=== PATIENT | female | born 2005 | race African-American/Black ===

== ENCOUNTER 2025-02-02 16:38 | Emergency (ER) | payer OTHER, SELFPAY ==
--- OUTSIDE RECORDS SUMMARY | 2023-12-20 12:03 | XMS_ITS | Continuity of Care Document ---
[facility] Organization [facility] Address [address] [place] [id number] Phone Care Team Providers Care Ironworker Machine Operator Name Role Phone Natasha Diaz APRN Unavailable Unavailabl e Allergies, Adverse Reactions, Alerts Substance Reaction Status Criticality No Known Allergies Active No Inform ation Medications Medication Instructions Dosage Effective Dates (start - stop) Status Comments acetaminophen 500 mg tablet take 2 tablet by oral route every 6 hours as needed 1000 MG - Active multivitamin tablet - Active ibuprofen 200 mg tablet take 3 tablet by oral route every 6 hours as needed with food 600 MG - Active Procedures Procedure Date ROUTINE VENIPUNCTURE OFFICE/OUTPATIENT VISIT, BANNER Advance Directives Directive Yes / No Effective Date File Name No Information Encounters Encounter Description Practice Location Reason(s) For Visit Diagnoses Date Provider Providers Copied on Encounter [facility], [address] [place] [address], [id number], [place] tel:[phone] [facility] No Information 4 Joe Kaur . [address], [place], [id number] , [place]. tel:[phone] OFFICE/OUTPAT IENT VISIT, [facility], [address] [place] [address], [id number], [place] tel:[phone] [facility] Establish Care (chief complaint) Body mass index [BMI] 22.0-22.9, adultOther senior care (current) drug therapyAdult general medical examScreening for HIV (human immunodeficiency virus)Need for hepatitis C screening testModerately severe depression Nov-2 Joe Kaur . [address], [place], [id number] , [place]. tel:[phone] Family History Family Member Type Diagnosis Age At Onset No Information Immunizations Vaccine Date Status Comments COVID-19 mRNA (PFR) administered Source: Other Registry COVID-19 mRNA (PFR) administered Source: Other Registry Influenza, Seasonal administered Source: Other Registry Hep A, ped/adol, 2D administered Source: Other Registry [id number] PEDIARIX administered Sourc e: Other Registry Hib (PRP-OMP)Pedvax administered Source: Other Registry [id number] PEDIARIX administered Sourc e: Other Registry Hib (PRP-OMP)Pedvax administered Source: Other Registry Hep B, ped/adol administered Source: Othe r Registry Payers Payer name Insurance type Covered libertarian ID Authoriza tion(s) No Information Social History Type Description Quantity Date Captured Comments Alcohol Use Details Unknown Caffeine Use Details Unknown Tobacco Use Status No Information Smoking Status No Information Sex Female Sexual Orientation Bisexual Gender Identity Female Chief Complaint And Reason For Visit No Information Reason For Referral Reason For Referral No Information Plan Of Treatment Date Type Action Status Goal Hepatitis C screening due Goal BMI Adult Follow-Up. Due on due Goal HIV Screen. Due on due Goal MOSBIRT Screening. Due on due Goal Tobacco screening. Due on due Goal Tobacco Cessation. Due on due Goal BMI. Due on due Goal Tdap. Due on due Goal Depression Follow-Up. Due on due Goal Depression screening. Due on due Goal BMI Adult Follow-Up. Due on due Goal Depression screening. Due on due Goal BMI. Due on due Goal Depression Follow-Up. Due on due Goal Tdap. Due on due Goal Tobacco screening. Due on due Goal MOSBIRT Screening. Due on due History Of Present Illness Encounter Date Complaint History Of Prese nt Illness Establish Care Nila Calderon is an 18 year old female that presents to establish care within the [facility] and begin seeing one of our PCP's. Previous PCP: had a child welfare manager, but unsure of their nameC/O:1) No active or current complaints. PMH: concussion and pneumoniaPSH: noneFH: Mother: none Father: noneLast labs: nothing in the past yearTobacco: deniesAlcohol: deniesDrugs: deniesBMI: 22.11Nutrition: Sincere effort to eat balanced mealsExercise: Not as much as they shouldPHQ: No SI/HIPreventive:Pap: never Colonoscopy: neverMammography: neverHIV blood test: neverHep C blood: neverImmunizations: unsure if UTD Functional Status Date Functional Assessmen t No Information Instructions Date Instruction Additional Infor belgica -Remember, do the OA paperwork and come in for a walk in assessment anytime M-F between 8am and 3pm.-Remember, we have the CAP available if needed. -We have a crisis hotline that is available 14/10-If you begin to feel suicidal, reach out to someone or call 911 or you can call 988 which goes directly to the suicide hotline. Related to Moderately severe depression Screening based on c urrent recommended guidelines Related to Screening for HIV (human immunodeficiency virus) Screening based on c urrent recommended guidelines Related to Need for hepatitis C screening test Labs to be drawnCont inue taking your daily medications Related to Other senior care (current) drug therapy -Make sure you are e ating a well balanced diet.-It is recommended that you try to get some form of exercise daily Related to Body mass index [BMI] 22.0-22.9, adult Labs to be drawnCont inue taking your daily medications Related to Adult general medical exam Depression Follow-Up Giving encouragement to exercise Related to Body mass index [BMI] 22.0-22.9, adult Dietary needs education Related to Body mass index [BMI] 22.0-22.9, adult Assessments Type Assessment Date No Information Patient Care Teams Name Effective Dates (start - stop) Status Members No Information
--- OUTSIDE RECORDS SUMMARY | 2024-03-10 03:30 | XMS_ITS ---
Author Organization [facility] Address [address] [place], [place] [id number] Care Team Providers Care Cilnical Scientist Name Role Phone Nino Araya Primary Care Provider [phone] Mag Bardales [phone] REASON FOR VISIT wwe exam new pt. Social History Sex Assigned At : Social History Observation Description Sex Assigned At Female Encounters Encounter Location Date Provider Diagnosis [facility] [address] [place], [place] [id number] 03/10/2024 Mag Bardales Plan Of Treatment No Information Progress Notes * FERREIRATremayneRidgeB:2005 (19 yo F)Acc No.[id number]:03/10/2024 Patient: Nila JOYNER Appointment Provider: RYAN Schofield :2005 A ge:18 Y S ex:Female Date:03/10/2024 Address:[address] [place], [id number] Pcp:Nino Araya Subjective: * Chief Complaints: * 1 . Wwe exam new pt.. * Medical History: Objective: * Vitals: Assessment: Plan: * Treatment: * Billing Information: * Visit Code: * Procedure Codes: * Electronic signature of RYAN Choudhary on 02/02/2025 at 07:42 PM CYBER SECURITY ARCHITECT Sign off status: Pending * Appointment Provider: RYAN Schofield Date: 1 05/11/2023 Generated for Frankie goodwin/Jimmie/Demian on: 1 04/04/2024 07:42 PM CYBER SECURITY ARCHITECT
--- NOTE | ~2025-02-02 | US_ITS ---
EXAMINATION: US OB <=14 wk fetus w TV, 02/02/2025 22:30 SOFT MUD MOLDER HISTORY: possible recent miscarriage, lower abd pain, +beta Comparison: None Technique: Melendez-scale sonographic images were obtained Findings: Uterus anteverted 7.5 x 3.2 x 4.9 cm. There is no intrauterine gestational sac identified. The endometrium is thickened with a heterogeneous appearance but no areas of increased flow, the endometrium measures 8 mm. Right ovary 4.6 x 2.4 x 4.1 cm, no adnexal mass, normal flow, probable corpus luteum 1.9 x 1.9 cm. Left ovary 4 x 1.3 x 2.2 cm, no adnexal mass, normal flow. Minimal free fluid. IMPRESSION: 1. No intrauterine identified. There is no adnexal mass to suggest ectopic , serial beta-hCG and follow-up recommended to assess Reviewed, dictated and finalized at location P. MUD MOLDER IMPRESSION: 1. No intrauterine identified. There is no adnexal mass to suggest ec topic , serial beta-hCG and follow-up recommended to assess
[2025-02-02 16:39] VITALS: BP 135/84; PULSE 98; RESP 16; TEMP 37.1; O2SAT 98
--- NOTE | 2025-02-02 17:47 | ED.ABDPAIN ---
HPI - Abdominal Pain General Chief Complaint: Abdominal Pain <STEFAN Walker Last Filed: 02/03/25 09:25> Stated Complaint: abd pain <STEFAN Walker Last Filed: 02/03/25 09:25> Time Seen by Provider: 02/02/25 17:47 <STEFAN Walker Last Filed: 02/03/25 09:25> Focused HPI: This is a 19 year old female that presents to the ER for abdominal pain. Reports mid lower abdominal pain. Reports ongoing intermittently for the last couple of months. Reports nausea, vomiting, diarrhea. Denies dysuria. GENERAL: Well-appearing, well-nourished, and in no acute distress. HEAD: Normocephalic, atraumatic. CHEST: Clear to auscultation. ?No respiratory distress. HEART: Regular rate and rhythm.? NEURO: ?Alert and oriented x3. Patient screened in triage and initial orders placed.? ?Additional care and disposition to be based upon?diagnostic testing and treatment. <STEFAN Walker Last Filed: 02/03/25 09:25> Focused HPI: This is a 19 year old female that presents to the ER for abdominal pain. Reports mid lower abdominal pain. Reports ongoing intermittently for the last couple of months. Reports nausea, vomiting, diarrhea. Denies dysuria. GENERAL: Well-appearing, well-nourished, and in no acute distress. HEAD: Normocephalic, atraumatic. CHEST: Clear to auscultation. ?No respiratory distress. HEART: Regular rate and rhythm.? NEURO: ?Alert and oriented x3. Patient screened in triage and initial orders placed.? ?Additional care and disposition to be based upon?diagnostic testing and treatment. <STEFAN Dave Last Filed: 02/03/25 01:30> Source: patient <STEFAN Dave Last Filed: 02/03/25 01:30> Mode of arrival: ambulatory <STEFAN Dave Last Filed: 02/03/25 01:30> Limitations: no limitations <STEFAN Dave Last Filed: 02/03/25 01:30> History of Present Illness HPI narrative: Agree with above HPI. Reports pain became worse today which prompted her presentation. She does report intermittent vaginal spotting over the past few weeks. Believe she was recently and had a miscarriage at the end of November. Believes she had a normal menstrual cycle 01/07. Does not currently see OBGYN. Reports urinary frequency, denies dysuria or hematuria. <STEFAN Dave Last Filed: 02/03/25 01:30> Related Data Allergies/Adverse Reactions: Allergies Allergy/AdvReac Type Severity Reaction Status Date / Time No Known Allergies Allergy Verified 02/02/25 22:08 <STEFAN Walker Last Filed: 02/03/25 09:25> Review of Systems Review of Systems: All systems reviewed & are unremarkable except as noted in HPI. <STEFAN Dave Last Filed: 02/03/25 01:30> All systems reviewed & are unremarkable except as noted in HPI and below <STEFAN Dave Last Filed: 02/03/25 01:30> Exam Narrative: GENERAL: Well appearing, well-nourished, non-toxic, in no acute distress. HEAD: Normocephalic, atraumatic. RESPIRATORY: Airway patent, respirations nonlabored. Clear to auscultation bilaterally, no rales, rhonchi, wheezing. CARDIOVASCULAR: Regular rate and rhythm without murmurs, rubs, or gallops. ABDOMINAL: Soft, diffuse tenderness throughout lower abdomen, worse over suprapubic region, nondistended. Normoactive BS. MUSCULOSKELETAL: Moves all extremities. No gross deformities. SKIN: Warm, dry, normal color. NEURO: A&O X3. Speech clear. Cranial nerves II-XII grossly intact. Steady gait. No ataxic movements. PSYCHIATRIC: Appropriate mood and affect. Normal interaction. <STEFAN Dave Last Filed: 02/03/25 01:30> Course Vital Signs Vital signs: Vital Signs Temperature 98.7 F 02/02/25 16:39 Pulse Rate 98 02/02/25 16:39 Respiratory Rate 16 02/02/25 16:39 Blood Pressure 135/84 02/02/25 16:39 Pulse Oximetry 98 02/02/25 16:39 Temperature 98.7 F 02/02/25 16:39 Pulse Rate 82 02/03/25 01:30 Respiratory Rate 18 02/03/25 01:30 Blood Pressure 120/62 02/03/25 01:30 Pulse Oximetry 99 02/03/25 01:30 <Beth Mckeon PA-C - Last Filed: 02/03/25 09:25> Vital Signs Temperature 98.7 F 02/02/25 16:39 Pulse Rate 98 02/02/25 16:39 Respiratory Rate 16 02/02/25 16:39 Blood Pressure 135/84 02/02/25 16:39 Pulse Oximetry 98 02/02/25 16:39 Temperature 98.7 F 02/02/25 16:39 Pulse Rate 82 02/03/25 01:30 Respiratory Rate 18 02/03/25 01:30 Blood Pressure 120/62 02/03/25 01:30 Pulse Oximetry 99 02/03/25 01:30 <STEFAN Dave Last Filed: 02/03/25 01:30> MDM - Abdominal Pain MDM Narrative Medical decision making narrative: Patient presented to ED with lower abdominal pain, possible recent miscarriage. Vital signs stable upon arrival. Patient in no acute distress. Cbc without leukocytosis or anemia. CMP unremarkable. UA with some microscopic blood, no significant signs of infection. Bedside urine was negative, however beta hCG was obtained and slightly elevated to 23.5. Unclear if this is new or down trending from possible recent miscarriage. Patient was not evaluated for recent /miscarriage. Pelvic ultrasound obtained and showing thickened endometrium, wide differential, could be retained products of conception versus spontaneous miscarriage versus of unknown location. Discussed case with MALLIKA Arboleda environmental conservation professor, advised to have patient call office to make follow-up appointment, will need to determine if new or old/recent . Will place lab order sheet for repeat beta hcg on Friday. Patient is in agreement this plan and plan for follow-up. Advised to continue monitoring bleeding. Given strict return precautions. Patient in agreement with plan. Feels comfortable going home. Discharged in stable condition. <STEFAN Dave Last Filed: 02/03/25 01:30> Medical Records Attestation: I reviewed the patient's medical records. <Kell Gonzalez PA-C - Last Filed: 02/03/25 01:30> Lab Data Attestation: I reviewed the patient's lab results. <Kell Gonzalez PA-C - Last Filed: 02/03/25 01:30> Result diagrams: 02/02/25 18:36 02/02/25 18:36 <Beth Mckeon PA-C - Last Filed: 02/03/25 09:25> Labs: Lab Results 02/02/25 02/02/25 Range/Units 18:26 18:36 WBC 6.3 (4.5-10.0) K/mm3 RBC 4.62 (4.2-5.4) M/mm3 Hgb 12.9 (12.0-15.0) g/dL Hct 40.1 (37.0-47.0) % MCV 86.8 (80-100) fl MCH 27.9 (26-34) pg MCHC 32.2 (32-36) g/dl RDW 13.2 (11.5-14.5) % Plt Count 287 (150-375) k/mm3 MPV 10.1 (7.4-10.4) fl Immature Gran % (Auto) 0.2 (0-0.5) % Neut % (Auto) 52.4 (45.5-73.1) % Lymph % (Auto) 35.7 (18.3-44.2) % Stephenson % (Auto) 8.6 H (2.6-8.5) % Eos % (Auto) 2.5 (0-4.4) % Baso % (Auto) 0.6 (0.2-1.2) % Lymph # (Auto) 2.25 (0.9-3.2) K/mm3 Stephenson # (Auto) 0.5 (0.1-0.6) K/mm3 Eos # (Auto) 0.2 (0-0.3) K/mm3 Baso # (Auto) 0.0 (0.0-0.1) K/mm3 Abs Immat Gran (auto) 0.01 (0.00-0.031) K/mm3 Absolute Neuts (auto) 3.3 (1.3-6.7) K/mm3 Absolute Nucleated RBC 0.000 (0.0-0.012) K/mm3 Nucleated RBC % 0.0 (0.0-0.2) % Sodium 138 (134-143) mmol/L Potassium 4.2 (3.4-5.0) mmol/L Chloride 105 (98-107) mmol/L Carbon Dioxide 23 (22-30) mmol/L Anion Gap 10 (4-12) mmol/L BUN 14 (8-21) mg/dL Creatinine 0.67 L (0.7-1.0) mg/dL Estim Creat Clear Calc 104 ml/min Estimated GFR > 60 (59 - ) Glucose 84 (65-110) mg/dL Calcium 9.8 (8.9-10.7) mg/dL Total Bilirubin 0.3 (0.2-1.3) mg/dL AST 27 (14-36) U/L ALT 16 (6-35) U/L Alkaline Phosphatase 63 (45-116) U/L Total Protein 8.7 H (6.3-8.6) g/dL Albumin 4.8 (3.7-5.6) g/dL Lipase 42 (23-300) U/L Beta HCG, Quant 23.52 mIU/ML Urine Color Yellow (Yellow) Urine Appearance Cloudy H (Clear) Urine pH 8.0 (5.0-9.0) Ur Specific [place] 1.028 (1.001-1.035) Urine Protein Trace (Negative) mg/dL Urine Glucose (UA) Negative (Negative) mg/dL Urine Ketones Negative (Negative) mg/dL Ur Blood (Man) Negative (Negative) Urine Nitrate Negative (Negative) Urine Bilirubin Negative (Negative) Urine Urobilinogen 1.0 (<2.0) mg/dL Add Ur Microanalysis Reviewed Leukocyte Esterase Rfl Trace H (Negative) JUSTEN/UL Urine RBC 21-50 H (0-2) /hpf Urine WBC 0-5 (0-3) /hpf Ur Squamous Epith Cells Moderate (Few) /hpf Urine Bacteria 1+ H /hpf Urine Casts 0-2 POC Urine HCG, Qual Negative (Negative) <Beth cMkeon PA-C - Last Filed: 02/03/25 09:25> Lab Results 02/02/25 02/02/25 Range/Units 18:26 18:36 WBC 6.3 (4.5-10.0) K/mm3 RBC 4.62 (4.2-5.4) M/mm3 Hgb 12.9 (12.0-15.0) g/dL Hct 40.1 (37.0-47.0) % MCV 86.8 (80-100) fl MCH 27.9 (26-34) pg MCHC 32.2 (32-36) g/dl RDW 13.2 (11.5-14.5) % Plt Count 287 (150-375) k/mm3 MPV 10.1 (7.4-10.4) fl Immature Gran % (Auto) 0.2 (0-0.5) % Neut % (Auto) 52.4 (45.5-73.1) % Lymph % (Auto) 35.7 (18.3-44.2) % Stephenson % (Auto) 8.6 H (2.6-8.5) % Eos % (Auto) 2.5 (0-4.4) % Baso % (Auto) 0.6 (0.2-1.2) % Lymph # (Auto) 2.25 (0.9-3.2) K/mm3 Stephenson # (Auto) 0.5 (0.1-0.6) K/mm3 Eos # (Auto) 0.2 (0-0.3) K/mm3 Baso # (Auto) 0.0 (0.0-0.1) K/mm3 Abs Immat Gran (auto) 0.01 (0.00-0.031) K/mm3 Absolute Neuts (auto) 3.3 (1.3-6.7) K/mm3 Absolute Nucleated RBC 0.000 (0.0-0.012) K/mm3 Nucleated RBC % 0.0 (0.0-0.2) % Sodium 138 (134-143) mmol/L Potassium 4.2 (3.4-5.0) mmol/L Chloride 105 (98-107) mmol/L Carbon Dioxide 23 (22-30) mmol/L Anion Gap 10 (4-12) mmol/L BUN 14 (8-21) mg/dL Creatinine 0.67 L (0.7-1.0) mg/dL Estim Creat Clear Calc 104 ml/min Estimated GFR > 60 (59 - ) Glucose 84 (65-110) mg/dL Calcium 9.8 (8.9-10.7) mg/dL Total Bilirubin 0.3 (0.2-1.3) mg/dL AST 27 (14-36) U/L ALT 16 (6-35) U/L Alkaline Phosphatase 63 (45-116) U/L Total Protein 8.7 H (6.3-8.6) g/dL Albumin 4.8 (3.7-5.6) g/dL Lipase 42 (23-300) U/L Beta HCG, Quant 23.52 mIU/ML Urine Color Yellow (Yellow) Urine Appearance Cloudy H (Clear) Urine pH 8.0 (5.0-9.0) Ur Specific [place] 1.028 (1.001-1.035) Urine Protein Trace (Negative) mg/dL Urine Glucose (UA) Negative (Negative) mg/dL Urine Ketones Negative (Negative) mg/dL Ur Blood (Man) Negative (Negative) Urine Nitrate Negative (Negative) Urine Bilirubin Negative (Negative) Urine Urobilinogen 1.0 (<2.0) mg/dL Add Ur Microanalysis Reviewed Leukocyte Esterase Rfl Trace H (Negative) JUSTEN/UL Urine RBC 21-50 H (0-2) /hpf Urine WBC 0-5 (0-3) /hpf Ur Squamous Epith Cells Moderate (Few) /hpf Urine Bacteria 1+ H /hpf Urine Casts 0-2 POC Urine HCG, Qual Negative (Negative) <Kell Gonzalez PA-C - Last Filed: 02/03/25 01:30> Imaging Data Attestation: I personally reviewed and interpreted this imaging study as follows: <Kell Gonzalez PA-C - Last Filed: 02/03/25 01:30> Radiologist's impression: ITS Impressions Obstetrics Ultrasound 02/03/25 08:13 IMPRESSION: 1. No intrauterine identified. There is no adnexal mass to suggest ectopic , serial beta-hCG and follow-up recommended to assess <Beth Mckeon PA-C - Last Filed: 02/03/25 09:25> ITS Impressions Obstetrics Ultrasound 02/03/25 08:13 IMPRESSION: 1. No intrauterine identified. There is no adnexal mass to suggest ectopic , serial beta-hCG and follow-up recommended to assess STAT RAD pelvic US: Impression: No visible intrauterine or ectopic . Complex, thickened endometrium. In the setting of positive test, differential considerations are retained products of conception, spontaneous with blood products in the endometrium, or of unknown location. Continued clinical and imaging follow-up advised. Both ovaries visualized. No mass. Right ovarian corpus luteum. No incidental findings. <Kell Gonzalez PA-C - Last Filed: 02/03/25 01:30> Critical Care Time Critical Care Time Critical Care Time: No <STEFAN Walker Last Filed: 02/03/25 09:25> Discharge Plan Discharge Clinical Impression: DUB (dysfunctional uterine bleeding), Bilateral lower abdominal pain, Elevated serum hCG <STEFAN Walker Last Filed: 02/03/25 09:25> Patient Disposition: Home <STEFAN Walker Last Filed: 02/03/25 09:25> Condition: Stable <STEFAN Walker Last Filed: 02/03/25 09:25> Instructions: Antibiotic Form, Miscarriage (ED), Abnormal (Dysfunctional) Uterine Bleeding (ED) <STEFAN Walker Last Filed: 02/03/25 09:25> Additional Instructions: Follow-up closely with OBGYN for further evaluation. Call office tomorrow to make follow-up appointment. Obtain repeat hormone level blood test on Friday. Take lab order sheet with you to outpatient lab at the front of the hospital. Continue to monitor symptoms. Continue Tylenol/ibuprofen, heating pad as needed for pain. You can take 1000 mg of Tylenol and 600 mg of ibuprofen every 6 hours. Return to the ED if you experience worsening or severe pain, severe bleeding, passing out, feeling dizzy or lightheaded, unable to keep down food or drink, fevers, or any other symptoms of concern. <STEFAN Walker Last Filed: 02/03/25 09:25> Patient Language: Ugandan <STEFAN Walker Last Filed: 02/03/25 09:25> Other Ambulatory Orders: Beta HCG Quantitative (Routine) Timeframe: 20250204 Location: Determined by Patient Ordered By: Kell Gonzalez <Beth Mckeon PA-C - Last Filed: 02/03/25 09:25> Follow-up/Referrals: PHYSICIAN NOT ON STAFF,NONSTAFF [Non-Staff] Gaston Gómez MD [Physician, [facility] [facility]] Referral Note: OBGYN <Beth Mckeon PA-C - Last Filed: 02/03/25 09:25> Time of Disposition: 01:07 <Beth Mckeon PA-C - Last Filed: 02/03/25 09:25> 01:07 <Kell Gonzalez PA-C - Last Filed: 02/03/25 01:30>
[2025-02-02 18:28] LABS: BEDSIDEPREGUCG Negative (Negative)
[2025-02-02 18:42] LABS: Hematocrit 40.1 % (37.0-47.0); Hemoglobin 12.9 g/dL (12.0-15.0); Immature Granulocyte Percent A 0.2 % (0-0.5); Lymphocytes Absolute Auto 2.25 K/mm3 (0.9-3.2); Mean Corpuscular HGB Conc 32.2 g/dl (32-36); Mean Corpuscular Hemoglobin 27.9 pg (26-34); Mean Corpuscular Volume 86.8 fl (80-100); Nucleated Red Blood Cells Absolute Auto 0.000 K/mm3 (0.0-0.012); Nucleated Red Blood Cells Perc 0.0 % (0.0-0.2); Platelet Count Result 287 k/mm3 (150-375); Red Blood Count 4.62 M/mm3 (4.2-5.4); White Blood Count 6.3 K/mm3 (4.5-10.0)
[2025-02-02 18:50] LABS: Add Urine Microscopic? YES; Appearance Urine Cloudy (Clear); Glucose Urine UA Negative (Negative); Leukocyte Esterase Ur Trace LEU/UL (Negative); Need Manual Microscopic Reviewed; Nitrate Urine Negative (Negative); Non Pathogenic Casts 0-2; Specific Grav Ur 1.028 (1.001-1.035)
[2025-02-02 19:10] LABS: Alanine Aminotransferase 16 U/L (6-35); Albumin Level 4.8 g/dL (3.7-5.6); Alkaline Phosphatase 63 U/L (45-116); Anion Gap 10 mmol/L (4-12); Aspartate Amino Transferase 27 U/L (14-36); Bilirubin,Total 0.3 mg/dL (0.2-1.3); Blood Urea Nitrogen 14 mg/dL (8-21); Calcium 9.8 mg/dL (8.9-10.7); Carbon Dioxide 23 mmol/L (22-30); Chloride 105 mmol/L (98-107); Estimated CRCL calculation 104 ml/min; Estimated Glomerular Filt Rate > 60; Glucose 84 mg/dL (65-110); Lipase 42 U/L (23-300); Sodium 138 mmol/L (134-143); Total Protein 8.7 g/dL (6.3-8.6)
[2025-02-02 19:17] LABS: Potassium 4.2 mmol/L (3.4-5.0)
--- OUTSIDE RECORDS SUMMARY | 2025-02-02 19:42 | XMS_ITS | Clinical Summary ---
Author Organization [facility] Address [address] [facility] [place] [address] Care Team Providers Care Supervisor Pairing And Inspecting Name Role Phone Unavailable Primary Care Provider Unavailabl e Source Comments [facility],non-owned Affiliates and Associated Physician Practices is amultiple site organization consisting of ambulatory clinics and hospital sitesin [place], [place], [place] and [place]. This disclosure is being madepursuant to the Care Everywhere program and may not contain all information available regarding this patient. Last updated 17.[facility] Allergies No known active allergies Medications * This document contains information received from the source organization and may not represent a complete record from that organization. * Be aware that medications may not be up to date on this document. Alwaysverify current medications with the patient. acetaminophen (TYLENOL) 500 MG capsule Take 1 capsule by mouth every 4 hours as needed for Fever or Pain 30 capsule 2 11/19/2017 Active butalbital-acet aminophen-caffe ine (Fioricet) 50-325-40 MG tablet Take 1 (one) tablet by mouth every 4 hours as needed for Headache 12 tablet 08/23/2023 Active escitalopram (Lexapro) 5 MG tabletIndicatio ns:Anxiety,Depr ession Take 1 (one) tablet by mouth once daily Reasons: Depression, Feeling Anxious 30 tablet 01/15/2024 Active Active Problems No known active problems Encounters Date Type Department Care Team Description 12/08/2024 9:24 AM CDT - 12/08/2024 10:32 AM CDT Emergency ER at [address] [place] [address] Nerissa Smith DO Vaginal pain; Candidiasis of genitalia; Concern about STD in female without diagnosis Discharge Disposition: Home or Self Care 12/08/2024 Travel 12/06/2024 6:52 PM CDT - 12/06/2024 9:15 PM CDT Emergency ER at [address] [address] Chest pain, unspecified type Discharge Disposition: Home or Self Care 12/06/2024 Travel from Last 3 Months Immunizations Immunization Administration Dates Next Due DTAP/HEP B/IPV 11/26/2006,04/17/2006 FLU VACCINE TRI IIV3 SPLIT IM (FLUVIRIN) 013 HEP A PEDS 2 DOSE 03/07/2011 HEP B VACCINE, PED/ADOL 2005 HIB-PRP-OMP 3 DOSE 11/26/2006,04/17/2006 Social History Tobacco Use Types Packs/Day Years Used Date Smoking Tobacco: Never Smokeless Tobacco: Never Alcohol Use Standard Drinks/Week Comments No 0 (1 standard drink = 0.6 oz pur e alcohol) Comments No Sex and Gender Information Value Date Recorded Sex Assigned at Female 10/06/2024 11:14 PM CDT Legal Sex Female 6:11 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 Gender Identity Not on file Sexual Orientation Not on file Last Filed Vital Signs Vital Sign Reading Time Taken Comments Blood Pressure 107/72 12/08/2024 10:31 AM CDT Pulse 80 12/08/2024 10:31 AM CDT Temperature 37.1 C (98.7 F) 12/08/2024 7:15 AM CDT Respiratory Rate 18 12/08/2024 10:3 1 AM CDT Oxygen Saturation 99% 12/08/2024 10: 31 AM CDT Inhaled Oxygen Concentration - - Weight 60.6 kg (133 lb 9.6 oz) 01/15/2024 6:55 P M CDT Height 170.2 cm (5' 7) 01/15/2024 6:55 PM CDT Body Mass Index 20.92 01/15/2024 6:55 PM CDT Body Mass Index Percentile 45.04% 01/15/2024 6:5 5 PM CDT Growth Chart: CDC (Girls, 2- 20 Years) Plan of Treatment Health Maintenance Due Date Last Done Comments HIV SCREENING 2020 HPV VACCINE (1 - 3-dose series) 2020 MENINGOCOCCAL (Group B) VACCINE SHARED DECISION-MAKING (1 of 2 - Standard) 2021 HEPATITIS C SCREENING 11/29/2023 DEPRESSION SCREENING 03/24/2024 COVID-19 VACCINE (3 - 2024-2 6 season) 2024 09/29/2020, 09/06/2020 INFLUENZA VACCINE (#1) 2024 12/24/2012 DTAP/TDAP/TD VACCINES (3 - Tdap) 2024 11/26/2006, 04/17/2006 CHLAMYDIA/GONORRHEA SCREENING 12/08/2025 12/08/2024 ZOSTER VACCINE (1 of 2) 12/04/2055 HEPATITIS B VACCINE Completed 11/26/2006, 04/17/2006, 2005 HIB VACCINE Aged Out 11/26/2006, 04/17/2006 No longer eligible based on patient's age to complete this topic MENINGOCOCCAL GROUPS A/C/Y/W VACCINE Aged Out No longer eligible b ased on patient's age to complete this topic PNEUMOCOCCAL VACCINE Aged Out No long er eligible based on patient's age to complete this topic Procedures Procedure Name Priority Date/Time Associated Diagnosis Comments HCG BETA BLOOD QUANTITATIVE STAT 12/08/2024 3:20 AM CDT COMPREHENSIVE METABOLIC PANEL STAT 12/08/2024 3:20 AM CDT CBC W AUTO DIFFERENTIAL STAT 12/08/2024 3:19 AM CDT TRICHOMONAS RAPID TEST STAT 2:34 AM CDT URINALYSIS REFLEX MICROSCOPIC REFLEX CULTURE STAT 12/08/2024 2:13 AM CDT CULTURE URINE STAT 12/08/2024 2:13 AM CDT BACTERIAL VAGINOSIS SMEAR STAT 12/08/2024 2:13 AM CDT CHLAMYDIA AND N. GONORRHOEAE NEFTALI STAT 12/08/2024 2:13 AM CDT CARDIAC EKG ORDER 12/07/2024 5:0 1 PM CDT TROPONIN-I HIGH SENSITIVE REFLEX 1HOUR Timed 12/06/2024 7:44 PM CDT XR CHEST 2VW STAT 12/06/2024 6:35 PM CDT Chest pain, unspecified type D-DIMER STAT 12/06/2024 6:16 PM CDT HCG BLOOD QUALITATIVE STAT 12/06/2024 6:16 PM CDT TROPONIN-I HIGH SENSITIVE BASELINE + 1HR STAT 12/06/2024 6:16 PM CDT COMPREHENSIVE METABOLIC PANEL STAT 12/06/2024 6:16 PM CDT CBC W AUTO DIFFERENTIAL STAT 12/06/2024 6:16 PM CDT EKG 12-LEAD STAT 12/06/2024 5:55 PM CDT Chest pain, unspecified type from Last 3 Months Results * (ABNORMAL) COMPREHENSIVE METABOLIC PANEL (12/08/2024 3:20 AM CDT) Only the most recent of2 resultswithin the time period is included. [facility] Glucose 85 70 - 99 mg/dL 12/08/2024 3:38 AM CDT [facility] Sodium 138 136 - 145 mmol/L 12/08/2024 3:38 AM CDT [facility] Potassium 3.6 3.5 - 5.1 mmol/L 12/08/2024 3:38 AM CDT [facility] Chloride 108(H) 98 - 107 mmol/L 12/08/2024 3:38 AM CDT [facility] CO2 22 22 - 29 mmol/L 12/08/2024 3:38 AM CDT [facility] Calcium 9.4 8.4 - 10.4 mg/dL 12/08/2024 3:38 AM CDT [facility] Anion Gap 8 6 - 16 mmol/L 12/08/2024 3:38 AM CDT [facility] BUN 14 5.3 - 18.7 mg/dL 12/08/2024 3:38 AM CDT [facility] Creatinine 0.86 0.57 - 1.11 mg/dL 12/08/2024 3:38 AM CDT [facility] Alkaline Phosphatase 51 40 - 150 U/L 12/08/2024 3:38 AM CDT [facility] ALT 13 6 - 57 U/L 12/08/2024 3:38 AM CDT [facility] AST 21 10 - 48 U/L 12/08/2024 3:38 AM CDT [facility] Protein Total 7.6 6.4 - 8.3 gm/dL 12/08/2024 3:38 AM CDT [facility] Albumin 4.0 3.1 - 4.5 gm/dL 12/08/2024 3:38 AM T [facility] Bilirubin Total 0.2 0.2 - 1.2 mg/dL 12/08/2024 3:38 AM T [facility] eGFR by CKD-EPI >90 >=90 mL/min/1.7 3 m2 12/08/2024 3:38 AM T [facility] Comment:Estimated Glomerular Filtration Rate (eGFR) calculated using the CKD-EPI Creatinine Equation (2020), per the National Kidney Foundation and [place] [employer] recommendations. Blood BLOOD SPECIMEN / Unknown Venipuncture / Unknown 12/08/2024 3:20 AM CDT 12/08/2024 3:20 AM CDT us Bethanie Flores DO LAB - CHEMISTRY ORDERABLES Tricia franks Result [facility] [address] [place] [address] * HCG BETA BLOOD QUANTITATIVE (12/08/2024 3:20 AM CDT) hCG Quantitative <2.42 mIU/mL 12/09/19 3:42 AM CDT [facility] Blood BLOOD SPECIMEN / Unknown Venipuncture / Unknown 12/08/2024 3:20 AM CDT 12/08/2024 3:20 AM CDT Narrative [facility] - 12/08/2024 3:42 AM CDT hCG Reference Range, mIU/mL: Non Females 0-6.0 Perimenopausal Females ages 41-55* 0-7.7 Postmenopausal Females age >55* 0-14 Females, Weeks after Last Menstrual Period 0.2-1 week 5-50 1 - 2 weeks 50-500 2 - 3 weeks 100-5000 3 - 4 weeks 500-10,000 4 - 5 weeks 1000-50,000 5 - 6 weeks 10,000-100,000 6 - 8 weeks 15,000-200,000 2 - 3 months 10,000-100,000 Trophoblastic Disease >100,000 *In higher than expected hCG in females > age 40, a serum FSH >20 IU/L makes unlikely. us Bethanie Flores DO LAB - CHEMISTRY ORDERABLES Tricia franks Result [facility] [address] [place] [address] * CBC W AUTO DIFFERENTIAL (12/08/2024 3:19 AM CDT) Only the most recent of2 resultswithin the time period is included. WBC 6.9 4.0 - 10.7 x10E9/L 12/08/2024 3:30 AM CDT [facility] RBC Count 4.18 3.90 - 5.20 x10E12/L 12/08/2024 3:30 AM CDT [facility] Hemoglobin 11.9 11.9 - 15.8 g/dL 12/08/2024 3:30 AM CDT [facility] Hematocrit 36.6 34.8 - 46.1 % 12/08/2024 3:30 AM CDT [facility] MCV 87.6 80.0 - 98.0 fL 12/08/2024 3:30 AM CDT [facility] MCH 28.5 26.7 - 33.6 pg 12/08/2024 3:30 AM CDT [facility] MCHC 32.5 31.7 - 36.3 g/dL 12/08/2024 3:30 AM CDT [facility] RDW-CV 12.9 11.3 - 14.8 % 12/08/2024 3:30 AM CDT [facility] Platelet Count 274 150 - 420 x10E9/L 12/08/2024 3:30 AM CDT [facility] MPV 10.5 7.8 - 11.4 fL 12/08/2024 3:30 AM CDT [facility] Neutrophil % 45.7 41.0 - 74.0 % 12/08/2024 3:30 AM CDT [facility] Lymphocyte % 45.1 17.0 - 47.0 % 12/08/2024 3:30 AM CDT [facility] Monocyte % 6.7 3.0 - 11.0 % 12/08/2024 3:30 AM [facility] Eosinophil % 1.6 0.0 - 7.0 % 12/08/2024 3:30 AM CDT [facility] Basophil % 0.6 0.0 - 1.6 % 12/08/2024 3:30 AM T [facility] Immature Granulocytes % 0.3 0.0 - 1.0 % 12/08/2024 3:30 AM CDT [facility] Neutrophil Absolute 3.14 1.60 - 7.50 x10E9/L 12/08/2024 3:30 AM [facility] Lymphocyte Absolute 3.10 1.00 - 4.40 x10E9/L 12/08/2024 3:30 AM CDT [facility] Monocyte Absolute 0.46 0.15 - 1.00 x10E9/L 12/08/2024 3:30 AM [facility] Eosinophil Absolute 0.11 0.00 - 0.60 x10E9/L 12/08/2024 3:30 AM T [facility] Basophil Absolute 0.04 0.00 - 0.13 x10E9/L 12/08/2024 3:30 AM [facility] Blood BLOOD SPECIMEN / Unknown Venipuncture / Unknown 12/08/2024 3:19 AM CDT 12/08/2024 3:19 AM CDT Bethanie Flores DO LAB - HEMATOLOGY ORDERABLES Fin al Result Performing Organization Address [facility]/ZIP Co de Phone Number [facility] [address] [place] [address] * TRICHOMONAS RAPID TEST (12/08/2024 2:34 AM CDT) Trichomonas Rapid Test Negative Negative 12/08/2024 2:52 AM CDT [facility] Microbiology VAGINAL SWAB / Unknown Collection / Unknown 12/08/2024 2:34 AM CDT 12/08/2024 2:34 AM CDT Bethanie Flores DO LAB - MICROBIOLOGY ORDERABLES F inal Result Performing Organization Address [facility] de Phone Number [facility] [address] [place] [address] * CHLAMYDIA AND N. GONORRHOEAE NEFTALI (12/08/2024 2:13 AM CDT) Chlamydia by NEFTALI NEGATIVE NEGATIVE 12/08/2024 9:17 PM CDT [facility] Neisseria gonorrhoeae NEFTALI NEGATIVE NEGATIVE 12/08/2024 9:17 PM CDT [facility] Microbiology ENTIRE VAGINA / Unknown Collection / Unknown 12/08/2024 2:13 AM CDT 12/08/2024 2:13 AM CDT Narrative [facility] - 12/08/2024 9:17 PM CDT This test performed by Qualitative real-time Polymerase Chain Reaction (PCR). Bethanie Flores DO LAB - MICROBIOLOGY ORDERABLES F inal Result Performing Organization Address City/[facility]/ZIP Co de Phone Number [facility] [address] [place] [address], [facility] [phone] * (ABNORMAL) URINALYSIS REFLEX MICROSCOPIC REFLEX CULTURE (12/08/2024 2:13 AM CDT) Color UA Yellow Yellow, Straw 12/08/2024 2:23 AM CDT [facility] Clarity UA Clear Clear 12/08/2024 2:23 AM T [facility] Glucose UA Normal Normal 12/08/2024 2:23 AM T [facility] Bilirubin UA Negative Negative 12/08/2024 2:23 AM T [facility] Ketone UA Negative Negative 12/08/2024 2:23 AM [facility] Specific [place] UA 1.024 1.005 - 1.030 12/08/2024 2:23 AM T [facility] Blood UA Trace(A) Negative 12/08/2024 2:23 AM T [facility] pH UA 8.0 5.0 - 8.0 12/08/2024 2:23 AM [facility] Protein UA Negative Negative 12/08/2024 2:23 AM T [facility] Urobilinogen UA Normal Normal mg/dL 12/08/2024 2:23 AM T [facility] Nitrite UA Negative Negative 12/08/2024 2:23 AM [facility] Leukocyte Esterase UA 250 JUSTEN/uL(A) Negative 12/08/2024 2:23 AM [facility] RBC UA 0-2 0 - 5 # /hpf 12/08/2024 2:23 AM [facility] WBC UA 6-10(A) 0 - 5 # /hpf 12/08/2024 2:23 AM [facility] Bacteria UA None Seen None Seen 12/08/2024 2:23 AM [facility] Squamous Epithelial Cells 0-2 0 - 5 /hpf 12/08/2024 2:23 AM [facility] Mucus UA 1+ /LPF 12/08/2024 2:23 AM [facility] Reflex Status Culture to follow 12/08/2024 2:23 AM [facility] Urine URINE SPECIMEN OBTAINED BY CLEAN CATCH PROCEDURE / Unknown Collection / Unknown 12/08/2024 2:13 AM CDT 12/08/2024 2:13 AM T us Bethanie Flores DO LAB - URINALYSIS ORDERABLES Fin al Result [facility] [address] [place], [place] [id number] * (ABNORMAL) BACTERIAL VAGINOSIS SMEAR (12/08/2024 2:13 AM CDT) Clue Cells No Clue Cells Seen No Clue Cells Seen 12/08/2024 5:22 AM CDT [facility] Yeast Rare Yeast(A) No Yeast Seen 12/09/19 5:22 AM CDT [facility] Chely Score Chely Score 4-6: Consistent with transition from normal vaginal sushil(A) Chely Score 0-3: Consistent with normal vaginal sushil 12/08/2024 5:22 AM CDT [facility] Microbiology ENTIRE VAGINA / Unknown Collection / Unknown 12/08/2024 2:13 AM CDT 12/08/2024 2:13 AM CDT Bethanie Flores DO LAB - MICROBIOLOGY ORDERABLES F inal Result Performing Organization Address City/[facility]/ZIP Co de Phone Number [facility] [address] [place] [address], [facility] [phone] * CULTURE URINE (12/08/2024 2:13 AM CDT) Culture Urine 10,000-50,000 CFU/mL urogenital sushil NORMAN 12/09/2024 8:26 AM CDT [facility] Urine URINE SPECIMEN OBTAINED BY CLEAN CATCH PROCEDURE / Unknown Collection / Unknown 12/08/2024 2:13 AM CDT 12/08/2024 2:13 AM CDT Bethanie Flores DO LAB - MICROBIOLOGY ORDERABLES F inal Result [facility] [address] [place] [address], [facility] [phone] * CARDIAC EKG ORDER (12/07/2024 5:01 PM CDT) Narrative 12/07/2024 5:01 PM CDT Ordered by an unspecified provider. Scanned Document CARDIAC SERVICES ORDERABLES Fin al Result * TROPONIN-I HIGH SENSITIVE REFLEX 1HOUR (12/06/2024 7:44 PM CDT) Troponin I High Sensitive <3 <=14 ng/L 12/06/2024 8:09 PM CDT [facility] Delta Troponin I HS 12/06/2024 8:09 PM CDT [facility] Comment:Result exceeds linea rity range. A delta value is unable to be calculated. Blood BLOOD SPECIMEN / Unknown Venipuncture / Unknown 12/06/2024 7:44 PM CDT 12/06/2024 7:47 PM CDT us Aretha SWAN LAB - CHEMISTRY ORDERABLES Fi nal Result [facility] [address] [place] [address] * XR CHEST 2VW (12/06/2024 6:35 PM CDT) Anatomical Region Laterality Modality Chest Radiographic Emily ging 12/06/2024 6:41 PM CDT Narrative 12/06/2024 6:41 PM CDT PROCEDURE: XR CHEST 2VW DATE/TIME OF EXAM: 12/06/2024 6:35 PM CLINICAL INFORMATION: None relevant/not provided if blank. Indication: R07.9: Chest pain, unspecified type Additional History: Exam: PA and lateral views of the chest. History: R07.9: Chest pain, unspecified type Findings/Impression: . No focal consolidation, pleural effusion, or pneumothorax is identified. The cardiac silhouette and mediastinal contours are normal. > Interpreting Provider: Brando Ching MD on 12/06/2024 6:41 PM Procedure Note Brando Ching MD - 12/06/2024 PROCEDURE: XR CHEST 2VW DATE/TIME OF EXAM: 12/06/2024 6:35 PM CLINICAL INFORMATION: None relevant/not provided if blank. Indication: R07.9: Chest pain, unspecified type Additional History: Exam: PA and lateral views of the chest. History: R07.9: Chest pain, unspecified type Findings/Impression: . No focal consolidation, pleural effusion, or pneumothorax is identified. The cardiac silhouette and mediastinalcontours are normal. > Interpreting Provider: Brando Ching MD on 12/06/2024 6:41 PM Aretha SWAN DIAGNOSTIC IMAGING ORDERABLES Final Result * TROPONIN-I HIGH SENSITIVE BASELINE + 1HR (12/06/2024 6:16 PM CDT) [facility] Troponin I High Sensitive <3 <=14 ng/L 12/06/2024 6:52 PM CDT [facility] Blood BLOOD SPECIMEN / Unknown Venipuncture / Unknown 12/06/2024 6:16 PM CDT 12/06/2024 6:27 PM CDT Aretha SWAN LAB - CHEMISTRY ORDERABLES Fi nal Result Performing Organization Address [facility] de Phone Number [facility] [address] [place] [address] * D-DIMER (12/06/2024 6:16 PM CDT) [facility] D-Dimer 0.36 0.27 - 0.50 ug/mL FEU 12/06/2024 6:41 PM CDT [facility] Blood BLOOD SPECIMEN / Unknown Venipuncture / Unknown 12/06/2024 6:16 PM CDT 12/06/2024 6:27 PM CDT Narrative [facility] - 12/06/2024 6:41 PM CDT In the absence of clinical symptoms, a value less than or equal to 0.5 mcg/mL FEU significantly decreases the probability of PE/DVT (negative predictive value >95%). 1 mcg/ml FEU = 1 Fibrinogen Equivalent Unit (approximates 0.5 mcg/mL of D- dimer). Arethaadi SWAN LAB - COAGULATION ORDERABLES Final Result Performing Organization Address [facility] Co de Phone Number [facility] [address] [place] [address] * HCG BLOOD QUALITATIVE (12/06/2024 6:16 PM CDT) [facility] HCG Qual Serum Negative Negative 12/06/2024 6:38 PM CDT [facility] Blood BLOOD SPECIMEN / Unknown Venipuncture / Unknown 12/06/2024 6:16 PM CDT 12/06/2024 6:27 PM CDT Narrative [facility] - 12/06/2024 6:38 PM CDT Specimens containing human anti-mouse antibodies may exhibit false positive or false negative results. If qualitative interpretation is inconsistent with clinical evaluation, consider confirmation by an alternative hCG method. Aretha SWAN LAB - CHEMISTRY ORDERABLES Fi nal Result Performing Organization Address [facility] Co de Phone Number [facility] [address] [place] [address] * EKG 12-LEAD (12/06/2024 5:55 PM CDT) [facility] Ventricular Rate 91 BPM [facility] Atrial Rate 91 BPM [facility] P-R Interval 148 ms [facility] QRS Duration ms 76 ms [facility] Q-T Interval ms 370 ms [facility] QTC Calculation (Bezet) 455 ms [facility] Calculated P [place] 70 degrees [facility] Calculated R [place] 79 degrees [facility] Calculated T [place] 64 degrees [facility] Interpretation EKG NORMAL SINUS RHYTHM WITH SINUS ARRHYTHMIA POSSIBLE LEFT ATRIAL ENLARGEMENT NONSPECIFIC T WAVE ABNORMALITY ABNORMAL ECG NO PREVIOUS ECGS AVAILABLE Confirmed by DO JUAREZ STEPHANIE ([id number]) on 12/07/2024 5:11:28 PM [facility] 12/06/2024 5:55 PM CDT 12/07/2024 5:11 PM CDT Aretha SWAN ECG ORDERABLES Edited Result - Final Performing Organization Address City/[facility] Co de Phone Number [facility] from Last 3 Months Insurance [employer]
--- OUTSIDE RECORDS SUMMARY | 2025-02-02 19:42 | XMS_ITS | Clinical Summary ---
Author Organization [facility] Address [address] [place] [address] Phone Care Team Providers Care Cyber Intelligence Analyst Name Role Phone Unavailable Primary Care Provider Unavailabl e Allergies No known active allergies Medications escitalopram oxalate (LEXAPRO) 5 mg tablet Take 5 mg by mouth daily. 01/15/2024 Active SUMAtriptan (IMITREX) 100 mg tablet 1 tablet as needed, may take second dose at least 2 hours after first dose up to 2 tablets per day as needed Orally Once a day for 30 day(s) 01/15/2024 Active butalbital-acet aminophen-caffe ine (FIORICET) 50-325-40 mg tablet Take 1 Tablet by mouth every 4 hours as needed. 08/23/2023 Active naproxen (NAPROSYN) 500 mg tablet Take 1 Tablet (500 mg) by mouth 2 times daily as needed for Pain, Moderate. 15 Tablet 09/06/2024 Active Active Problems Problem Noted Date Diagnosed Date Migraine without aura and responsive to treatmen t 01/26/2024 Encounters Date Type Department Care Team Description 01/25/2025 External Device Data [facility] ABSTRACTION Provider, Abstract 01/19/2025 External Device Data [facility]STRA[facility] Provider, Abstract 01/18/2025 External Device Data [facility] Provider, Abstract 01/12/2025 External Device Data [facility] Provider, Abstract 01/11/2025 External Device Data [facility]STRA[facility] Provider, Abstract 12/08/2024 External Device Data [facility]STRACTION Provider, Abstract 12/07/2024 External Device Data [facility]STRACTION Provider, Abstract 11/26/2024 Patient Outreach [facility] [address] [place] [id number] Julieta Shankar Referral 11/25/2024 Patient Outreach [facility] [address] [place] [id number] Julieta Shankar Referral 11/23/2024 External Device Data [facility] Provider, Abstract 11/02/2024 External Device Data [facility] Provider, Abstract 11/02/2024 External Device Data [facility] Provider, Abstract 11/02/2024 External Device Data [facility] Provider, Abstract from Last 3 Months Immunizations Immunization Administration Dates Next Due (ADACEL/BOOSTRIX)(10 YR UP) TDAP VACCINE, 0.5ML, IM 11/12/2019 (HAVRIX/VAQTA)(12 MO-18 YRS) HEPATITIS A VACCINE 0.5 ML PED/ADOL 2 DOSE, IM 03/07/2011 (MENACTRA)(9 MO-55 YR) MENIN GOCOCCAL POLYSACCHARIDE A, C, Y AND W-135 DIPTHERIA TOXOID CONJUGATE VACCINE, (PF), 0.5ML, IM 11/12/2019 (PEDIARIX)(6 WKS-6 YRS) DIPT HERIA, TETANUS TOXOIDS, ACELLULAR PERTUSSIS, HEPATITIS B, AND INACTIVATED POLIOVIRUS VACCINE (LJJK-BJWF-APT), 0.5ML, IM 11/26/2006,04/17/2006 (PEDVAXHIB)(2 - 71 MOS) HIB PRP-OMP VACCINE, 3 DOSE, 0.5 ML IM0] 11/26/2006,04/17/2006 (RECOMBIVAX HB/ENGERIX-B)(0- 19 YRS) HEPATITIS B VACCINE 5 MCG/0.5 ML OR 10 MCG/0.5 ML PED OR ADOL 3 DOSE (PF), IM 2005 Influenza Seasonal Unspecified Formulation IM Social History Tobacco Use Types Packs/Day Years Used Date Smoking Tobacco: Never Tobacco Cessation:Counseling Given: Not Answered Alcohol Use Standard Drinks/Week Comments Never 0 (1 standard drink = 0.6 oz pur e alcohol) Feeling Safe Answer Date Recorded Are you in a relationship wi th someone who hurts you emotionally and/or physically? No 09/05/2024 Comments No Sex and Gender Information Value Date Recorded Sex Assigned at Not on file Legal Sex Female 9:46 AM CDT Gender Identity Not on file Sexual Orientation Not on file Last Filed Vital Signs Vital Sign Reading Time Taken Comments Blood Pressure 102/56 09/06/2024 4:00 AM CDT Pulse 79 09/06/2024 4:00 AM CDT Temperature 36.6 C (97.9 F) 09/06/2024 4:00 AM CDT Respiratory Rate 14 09/06/2024 3:00 AM CDT Oxygen Saturation 99% 09/06/2024 4:00 AM CDT Inhaled Oxygen Concentration - - Weight 59 kg (130 lb) 09/05/2024 10:57 PM CDT Height 170.2 cm (5' 7) 09/05/2024 10:57 PM CDT Body Mass Index 20.36 09/05/2024 10:57 PM CDT Body Mass Index Percentile 34.96% 09/05/2024 10: 57 PM CDT Growth Chart: CDC (Girls, 2- 20 Years) Plan of Treatment Health Maintenance Due Date Last Done Comments CHLAMYDIA SCREENING (ANNUAL) 11-24 YEARS 2016 HPV VACCINES (1 - 3-dose series) 2020 INFLUENZA VACCINE (#1) 2024 12/24/2012 COVID-19 Vaccine (3 - 2024-2 6 season) 2024 09/29/2020, 09/06/2020 DTAP/TDAP/TD VACCINES (4 - T d or Tdap) 11/11/2029 11/12/2019, 11/26/2006, 04/17/2006 HEPATITIS B VACCINES Completed 11/26/2006, 04/17/2006, 2005 Insurance [address] [id number] RX REA PLANS (INTERNAL) [facility] [employer] [address] [id number] AETNA CHOICE POS [facility] [address] [id number] [facility] AETNA CHOICE POS II [facility] [address] [id number] [address] [id number]
--- OUTSIDE RECORDS SUMMARY | 2025-02-02 19:42 | XMS_ITS | Patient Health Record ---
Author Organization [facility] Address 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 Name Role Phone Nino Araya Primary Care Provider Mag Bardales Unavailable [phone] Allergies No Known Allergies Reason For Referral No Information Medications Medication SIG (Take, Route, Frequency, Duration) Notes Start Date End Date Status SUMAtriptan Succinate 100 MG 1 tablet as needed, may take second dose at least 2 hours after first dose up to 2 tablets per day as needed Orally Once a day; Duration: 30 day(s) 01/15/2024 Active Social History Tobacco Use: Social History Observation Description Date Details (start date - stop date) Never Smoker NA - NA Sex Assigned At : Social History Observation Description Sex Assigned At Female Tobacco Control (Standard) Question Answer Notes Tobacco use: Nonsmoker Problems Problem Type SNOMED Code ICD Code Onset Dates Problem Status W/U Status Risk Notes Problem Migraine without aura, not refractory (disorder) (670966577) Migraine, unspecified, not intractable, without status migrainosus (G43.909) Active confirmed Vital Signs Heart Rate 72 /min 02/11/2024 Temperature 98.6 degrees Fahrenheit 02/11/2024 Respiratory Rate 18 /min 02/11/2024 Oximetry 98 % 02/11/2024 Blood pressure diastolic 78 mm Hg 02/11/2024 Weight-kg 63.5 kg 02/11/2024 BMI Percentile 57.3 % 02/11/2024 Height 67 in 02/11/2024 Blood pressure systolic 122 mm Hg 02/11/2024 Weight 140 lbs 02/11/2024 BMI 21.92 kg/m2 02/11/2024 Encounters Encounter Location Date Provider Diagnosis [place] [address] [place], [place] [id number] 02/11/2024 Nino Araya Migraine, unspecifie d, not intractable, without status migrainosus G43.909 Assessments Encounter Date Diagnosis (ICD Code) Assessment Notes Treatment Notes Treatment Clinical Notes Section Notes 02/11/2024 Migraine, unspecified, not intractable, without status migrainosus (ICD-10 - G43.909) Patient is a 18 year old female who is here for follow up of migraine. patient had two episodes of migraine, and the medication prescribed had worked very well. patient is very happy with the progress. Pt is stable on the current treatment regimen and pt advised to be compliant and advised to continue the same regimen. Plan Of Treatment No Information Insurance Providers Payer Name Payer Address Payer Phone Subscriber Number Group Number Insured Name Patient Relationship to Insured Coverage Start Date Coverage End Date Slide Fee A $20 Medical / $40 [place] [id number] Nila Calderon Self - patient is the insured
[2025-02-02 21:03] LABS: Beta HCG Quantitative 23.52 mIU/ML
[2025-02-02] MEDS: ACETAMINOPHEN 500 MG TABLET 1000 MG PO (22:09)
[2025-02-03 01:30] VITALS: BP 120/62; PULSE 82; RESP 18; O2SAT 99
== END 2025-02-03 01:30 | disposition home or self-care (01) ==
PROVIDERS: Physician Assistant; Emergency Provider Physician Assistant
DX: N93.8 Other specified abnormal uterine and vaginal bleeding (principal); R10.32 Left lower quadrant pain; R10.31 Right lower quadrant pain; R87.1 Abnormal level of hormones in specimens from female genital organs
CPT/HCPCS: 36415; 76801; 76817; 80053; 81001; 81025; 83690; 84702; 85025; 99284; A9270

== ENCOUNTER 2025-02-05 17:50 | Emergency (ER) | payer OTHER, SELFPAY ==
[2025-02-05 17:57] VITALS: BP 101/68; PULSE 82; RESP 16; TEMP 36.6; O2SAT 100
[2025-02-05 18:53] LABS: Beta HCG Quantitative 103.43 mIU/ML
--- NOTE | 2025-02-05 20:08 | PC.NURSE ---
Patient stating she is now having abdominal pain with nausea. PA notified.
--- NOTE | 2025-02-05 20:29 | ED_ITS ---
HPI - General Adult General Chief complaint: Recheck/Abnormal Lab/Rx Stated complaint: was told to come back and get labs rechecked Time Seen by Provider: 02/05/25 18:03 History of Present Illness HPI narrative: 19-year-old female presenting with need for follow-up beta HCG after being seen on 02/02 for possible threatened . Quantitative bhCG on 02/02 was 23.52. Denies vaginal complaints, urinary concerns, nausea / vomiting, abdominal pain, or fever/chills. Related Data Allergies Allergy/AdvReac Type Severity Reaction Status Date / Time No Known Allergies Allergy Verified 02/02/25 22:08 Review of Systems Review of Systems: All systems reviewed & are unremarkable except as noted in HPI and below Exam Narrative: GENERAL: Well-appearing, well-nourished, and in no acute distress. HEAD: Normocephalic, atraumatic. EYES: PERRLA and EOMI. ENT: Nares clear, no rhinorrhea or epistaxis. Mucous membranes moist. Oropharynx without tonsillar hypertrophy exudate or other lesions. Bilateral TMs pearly wilkins non-bulging NECK: Supple. No adenopathy or masses. No carotid bruits or JVD CHEST: Clear to auscultation. No respiratory distress. No wheezes rales or rhonchi HEART: Regular rate and rhythm. No murmur heard. Normal peripheral pulses. ABDOMEN: Soft, nontender, nondistended, normal active bowel sounds. EXTREMITIES: Normal range of motion. No edema. SKIN: Warm, dry, no rash. NEURO: No focal deficits. Alert and oriented x3. PSYCH: Normal mood and affect Course Vital Signs Vital signs: Vital Signs Temperature 97.8 F 02/05/25 17:57 Pulse Rate 82 02/05/25 17:57 Respiratory Rate 16 02/05/25 17:57 Blood Pressure 101/68 02/05/25 17:57 Pulse Oximetry 100 02/05/25 17:57 Oxygen Delivery Room Air 02/05/25 17:57 Temperature 97.8 F 02/05/25 17:57 Pulse Rate 82 02/05/25 17:57 Respiratory Rate 16 02/05/25 17:57 Blood Pressure 101/68 02/05/25 17:57 Pulse Oximetry 100 02/05/25 17:57 Oxygen Delivery Room Air 02/05/25 17:57 Medical Decision Making MDM Narrative Medical decision making narrative: 19-year-old female presenting with need for follow-up beta HCG after being seen on 02/02 for possible threatened . Quantitative bhCG on 02/02 was 23.52 and today it has increased to 103.43. Denies vaginal complaints, urinary complaints, nausea / vomiting, abdominal pain, or fever/chills. Upon my initial assessment patient is sitting comfortably in the room. Nursing staff relayed to me that patient began feeling mild lower abdominal pain and nausea after initial assessment. Administered zofran which improved her symptoms. Counseled patient that mild intermittent abdominal pain is common during and is often related to physiologic changes this early on. Ultrasound is not indicated this early on in . Furthermore patient is not having any vaginal complaints including no vaginal bleeding. No indication for RhoGAM. Beta HCG has increased the appropriate amount since last test. La bs done a few days ago were within normal limits. Patient verbalized understanding and was comfortable with outpatient follow-up with OBGYN. Given reasons to return. Medical Records Medical records reviewed: Yes I reviewed the external patient's medical records. Vital Signs Vital Signs: Vital Signs Temperature 97.8 F 02/05/25 17:57 Pulse Rate 82 02/05/25 17:57 Respiratory Rate 16 02/05/25 17:57 Blood Pressure 101/68 02/05/25 17:57 Pulse Oximetry 100 02/05/25 17:57 Oxygen Delivery Room Air 02/05/25 17:57 Temperature 97.8 F 02/05/25 17:57 Pulse Rate 82 02/05/25 17:57 Respiratory Rate 16 02/05/25 17:57 Blood Pressure 101/68 02/05/25 17:57 Pulse Oximetry 100 02/05/25 17:57 Oxygen Delivery Room Air 02/05/25 17:57 Lab Data Lab results reviewed: Yes I reviewed the patient's lab results. Labs: Lab Results 02/05/25 Range/Units 18:20 Beta HCG, Quant 103.43 mIU/ML Discharge Plan Discharge Clinical Impression: Patient Disposition: Home Condition: Stable Instructions: (ED) Additional Instructions: Return to the emergency department if you experience fever, chest pain, shortness of breath, abdominal pain with nausea and vomiting, weakness, numbness/tingling, or any other symptoms that are concerning to you. Call Dr. Saenz's office for proper OBGYN follow-up and care. Follow up with primary care doctor for any other general concerns. Patient Language: Citizen Of [place] Follow-up/Referrals: Mary Saenz MD [Physician, BORING MACHINE OPERATOR PRODUCTION] PHYSICIAN,HAY SORTER [Primary Care Provider, Internal Medicine]
[2025-02-05] MEDS: ONDANSETRON HCL ODT 4 MG TABLET PO (20:43)
== END 2025-02-05 21:40 | disposition home or self-care (01) ==
PROVIDERS: Emergency Medicine
DX: O21.0 Mild hyperemesis gravidarum (principal)
CPT/HCPCS: 36415; 84702; 99283; A9270